=== PATIENT | female | born 1950 | race Caucasian/White ===

== ENCOUNTER → 2017-08-15 | Outpatient (CLI) | payer MEDICARE, OTHER ==
[~2017-08-15] MED LIST: ALPRAZOLAM ER0.5 MG PO; DIOVAN320 MG PO; JANUVIA25 M1 PO; PRAVACHOL40 MG PO; PROZAC20 MG PO; WELLBUTRIN SR150 MG PO
== END | disposition home or self-care (01) ==
LOC: CDC 12:50
DX: Z01.810 Encounter for preprocedural cardiovascular examination (principal); I44.0 Atrioventricular block, first degree; I45.4 Nonspecific intraventricular block
CPT/HCPCS: 93000

== ENCOUNTER 2018-03-10 06:52 | Day surgery (SDC) | payer OTHER ==
[~2018-03-10] VITALS: Ht 162.6 cm; Wt 99.8 kg
[~2018-03-10 06:52] MED LIST changes: +BYSTOLIC5 MG PO; +CRESTOR20 MG PO; +JANUVIA100 MG PO; -JANUVIA25 M1 PO; +METFORMIN HCL1000 MG PO; +MOBIC15 MG PO; +SYNTHROID50 MCG PO; +TRESIBA FL100 UNIT/1 SC; +TYLENOL WITH C1 EACH PO
[2018-03-10 07:23] VITALS: BP 168/77
[2018-03-10 09:37] VITALS: BP 178/80
== END 2018-03-10 10:07 | disposition home or self-care (01) ==
LOC: SDC 06:52
PROVIDERS: Internal Medicine
DX: H35.342 Macular cyst, hole, or pseudohole, left eye (principal); F31.9 Bipolar disorder, unspecified; E11.65 Type 2 diabetes mellitus with hyperglycemia; K21.9 Gastro-esophageal reflux disease without esophagitis; E78.5 Hyperlipidemia, unspecified; I10 Essential (primary) hypertension; E03.9 Hypothyroidism, unspecified; E87.1 Hypo-osmolality and hyponatremia; G47.33 Obstructive sleep apnea (adult) (pediatric); E66.9 Obesity, unspecified; Z68.37 Body mass index [BMI] 37.0-37.9, adult; Z79.4 Long term (current) use of insulin
CPT/HCPCS: 82948; J0690; J3300